=== PATIENT | male | born 1975 | race Caucasian/White ===

== ENCOUNTER 2023-11-14 10:32 | Outpatient (OUT) | payer BC, SELFPAY | END 2023-11-14 10:33 | disposition home or self-care (01) | LOC: SLEEP 10:32 → LAB 16:41 → SLEEP 16:45 | PROVIDERS: PCP Nurse Practitioner Family; Visit Provider Nurse Practitioner Family | DX: G47.33 Obstructive sleep apnea (adult) (pediatric) (principal) | CPT/HCPCS: 95811 ==